=== PATIENT | female | born 1965 | race Caucasian/White ===

== ENCOUNTER → 2016-03-07 | Outpatient (CLI) | payer BC ==
[~2016-03-07] MED LIST: CALC-20 PO; CYAN3INJ INJ; EPP3/2 IM; LORA-741 PO; MEDR150I IM; PEDICHW18 PO; SERT-234 PO; VILA1TAB3 PO; VNTHFA/IN INH
--- NOTE | 2016-03-07 17:13 | DIAGNOSTIC IMAGING REPORT ---
CHEST 2 VIEWS ROUTINE CLINICAL HISTORY: Cough COMPARISON STUDY: 06/20/2013 FINDINGS: The cardiac and mediastinal contours are normal. There is no evidence of focal pulmonary consolidation. There is no evidence of failure. No pleural effusions are visualized.[ IMPRESSION: No active disease in the chest. Electronically signed by: Pollo Hernandez M.D. 03/07/2016 5:11 PM Dictated Date/Time: 03/07/2016 5:11 PM
== END | disposition home or self-care (01) ==
LOC: C.RAD 16:24
PROVIDERS: ATTEND Nurse Practitioner Family
DX: R05 Cough (principal)

== ENCOUNTER 2016-03-13 12:03 | Emergency (ER) | payer BC, OTHER ==
[~2016-03-13] VITALS: Ht 165.1 cm; Wt 94.4 kg
[~2016-03-13 12:03] MED LIST changes: -SERT-234 PO; -VNTHFA/IN INH
[2016-03-13 12:17] VITALS: Ht 165.1 cm; Wt 94.4 kg
[2016-03-13] MEDS ORDERED: SERT-234 PO (12:30)
[2016-03-13] MEDS ORDERED: VNTHFA/IN INH (12:30)
[2016-03-13] MEDS ORDERED: SODIUM CHLORIDE 0.9% 1000ML 1,000 ML IV STA (14:23)
[2016-03-13 14:42] LABS: BASO % 0.2 %; BASO ABS # 0.03 K/uL (0-0.2); COMPLETE YES; EOS % 0.9 %; HEMATOCRIT 39.3 % (37-47); IG% 0.3 %; LYMPH % 13.6 %; MEAN CELL VOLUME 78.1 fL (80-100); MEAN CORPUSCULAR HEMOGLOBIN 26.4 pg (25-34); MEAN CORPUSCULAR HGB CONC 33.8 g/dl (32-36); MEAN PLATELET VOLUME 10.1 fL (7.4-10.4); MONO % 11.9 %; NEUT % 73.1 %; PLATELET COUNT 402 K/uL (130-400); RED BLOOD COUNT 5.03 M/uL (4.2-5.4); WHITE BLOOD COUNT 13.25 K/uL (4.8-10.8)
[2016-03-13 14:45] VITALS: TEMP 36.9
[2016-03-13 14:52] LABS: ALT/SGPT 33 U/L (12-78); AST/SGOT 21 U/L (15-37); BLOOD UREA NITROGEN 9 mg/dl (7-18); BUN/CREATININE RATIO 12.7 (10-20); CALCIUM 8.5 mg/dl (8.5-10.1); CARBON DIOXIDE 23 mmol/L (21-32); CHLORIDE 109 mmol/L (98-107); CREATININE 0.73 mg/dl (0.60-1.20); GLUCOSE 73 mg/dl (70-99); POTASSIUM 3.7 mmol/L (3.5-5.1); SODIUM 141 mmol/L (136-145)
[2016-03-13 14:56] LABS: ALB/GLOB RATIO 0.9 (0.9-2); ALKALINE PHOSPHATASE 81 U/L (45-117)
--- NOTE | 2016-03-13 15:01 | EMERGENCY ROOM VISIT NOTE ---
History First contact with patient: 14:09 Chief Complaint: DEHYDRATION Stated Complaint: DEHYDRATION, PNEUMONIA Nursing Triage Summary: Triage note: Pt reports she was dx with influenza last week and given tamaflu. pt reports she had follow up appt today and was sent to ed for further eval. pt reports her heart rate was high and that she was told she was dehydrated. pt denies any nausea, vomitting, diarrhea. pt reports shortness of breath and coughing with clear blood tinged sputum. pt given mask to wear in triage. History of Present Illness The patient is a 50 year old female who presents to the Emergency Room via private vehicle coming by son with complaints of "dehydration, pneumonia". The patient states that this past Friday night into Friday she began with a cough and then developed fevers and chills. She states then she went to see her family doctor on the which is Dr. Gloria. She states that on she had a chest x-ray and flu swab which revealed she has influenza and with no pneumonia. She was placed on Tamiflu and Ventolin as well as Mucinex. Since that time she is not any better and finished the Tamiflu yesterday. Her follow-up as scheduled today with her doctor but they sent her in because she is tachycardic. There is associated cough, fevers as well as chills which she's been trying to alleviate with Motrin. The sputum has been yellow, green and slightly blood tinged. She has difficulty coughing up the mucus secondary to weakness. She states she feels very weak overall. She has been eating and drinking well. There is associated shortness of breath. She does have a history of a blood clot in her ankle in the past. She denies any chest pain, nausea, vomiting, abdominal pain, hemoptysis, pain. Review of Systems A complete 10-point Review of Systems was discussed with the patient, with pertinent positives and negatives listed in the History of Present Illness. All remaining Review of Systems questions can be considered negative unless otherwise specified. Past Medical/Surgical History Medical Problems: (1) Abdominal pain (2) Abdominal pain (3) Abdominal pain (4) Bariatric Surgery Status (5) PCOS (polycystic ovarian syndrome) (6) PCOS (polycystic ovarian syndrome) (7) Recurr Depr Disord-Mod Surgical Problems: (1) H/O gastric bypass (2) H/O gastric bypass (3) History of cholecystectomy (4) S/P T&A (status post tonsillectomy and adenoidectomy) (5) S/P T&A (status post tonsillectomy and adenoidectomy) Family History Cancer Diabetes mellitus Gallbladder disease Heart disease Hypertension Lung disease Social History Smoking Status: Never Smoker Alcohol Use: none Drug Use: none Marital Status: Housing Status: lives with family Occupation Status: employed Current/Historical Medications Scheduled Albuterol Hfa (Ventolin Hfa), 2-4 PUFFS INH Q6H Calcium Carbonate-Vitamin D (Calcium 600 + D), 1 TAB PO DAILY Cyanocobalamin (Vitamin B-12 Inj), 1 DOSE INJ MONTHLY Sertraline (Zoloft), 100 MG PO DAILY Allergies Coded Allergies: BEE STING (Verified Allergy, Unknown, unknown, 04/20/14) Physical Exam Vital Signs Date Time Temp Pulse Resp B/P Pulse Ox O2 Delivery O2 Flow Rate FiO2 03/13/16 19:27 87 18 125/75 98 Room Air 03/13/16 18:55 98 20 123/73 98 03/13/16 16:37 77 134/69 97 Room Air 03/13/16 14:45 36.9 80 20 130/86 97 Room Air 03/13/16 13:49 84 20 114/67 96 Room Air 03/13/16 12:17 36.8 115 20 123/86 96 Room Air Physical Exam VITAL SIGNS - Vital signs and nursing notes were reviewed. Patient is afebrile , normotensive, she is tachycardic at a rate of 115 bpm, she is saturating well on room air 96%. GENERAL -50-year-old female appearing her stated age who is in no acute distress. Communicates well with provider and answers questions appropriately. SKIN - Without rashes. No purpura. HEAD - NC/AT. EYES - PERRL with EOMI bilaterally. Sclera anicteric. Palpebral conjunctiva pink and moist with no injection noted. EARS - No deformities of external structures noted on gross examination bilaterally. No hemotympanum External auditory canals without discharge or otorrhea. Tympanic membranes pearly servin without retraction or bulging. No fluid or purulent material visualized behind the TM. Handle of malleus, umbo, cone of light, pars tensa/flaccid all easily visualized. NOSE - Midline and without cyanosis. No epistaxis or purulent drainage noted. Septum midline without deviation or septal hematoma noted. MOUTH/OROPHARYNX - Without perioral cyanosis. Buccal mucosa pink and moist and without leukoplakia. Tongue midline with equal elevation of palate bilaterally. No tonsillar hypertrophy, erythema, or exudates noted. Good dentition noted. NECK - Neck with FROM. Supple to palpation. Minimal lymphadenopathy noted. No nuchal rigidity. No C-spine tenderness. LUNGS - Chest wall symmetric without accessory muscle use, intercostals retractions, or central cyanosis. Normal vesicular breath sounds CTA B/L. No wheezes, rales, or rhonchi appreciated. The right lower lobe posteriorly does have slightly diminished breath sounds. CARDIAC - RRR with S1/S2. No murmur, rubs, or gallops appreciated. EXTREMITIES - No clubbing or peripheral cyanosis. No pretibial edema present. NEUROLOGIC - Cranial nerves II through XII grossly intact. Sensory intact to light touch throughout. PSYCH - A&Ox3 and cooperates fully with examiner. Pt is very pleasant and interacts well with examiner. Medical Decision & Procedures ER Provider Diagnostic Interpretation: CHEST 2 VIEWS ROUTINE CLINICAL HISTORY: Hx Influenza A, worsening of symptoms COMPARISON STUDY: Chest radiograph March 07, 2016 FINDINGS: Lung volumes are normal. Lungs are clear. There is no pneumothorax or pleural effusion. Cardiac size is normal. Mediastinal contours are normal. There is no evidence of pulmonary edema. IMPRESSION: No acute cardiopulmonary findings. Electronically signed by: Polo Alvarez M.D. 03/13/2016 3:02 PM Dictated Date/Time: 03/13/2016 3:[address] ANGIOGRAPHY OF THE CHEST, PULMONARY EMBOLUS PROTOCOL CLINICAL HISTORY: Dyspnea. COMPARISON STUDY: Chest radiograph March 07, 2016 and March 13, 2016. TECHNIQUE: Following IV administration of 101 mL of Optiray-320, helical axial images of the chest were obtained utilizing the pulmonary embolus protocol. Maximal intensity projections and sagittal and coronal reformats were viewed on an independent 3D workstation. IV contrast was administered without complication. CT DOSE: 539.20 mGycm FINDINGS: No pulmonary emboli are identified. The subsegmental vessels are suboptimally assessed due to respiratory motion. The size of the heart is normal. There is no evidence of thoracic aortic dissection. No enlarged axillary, mediastinal or hilar lymph nodes are present. No pneumothorax or pleural effusions present. The central airways are patent. There is no consolidation to suggest pneumonia. The bony thorax and upper abdomen are unremarkable. The patient is status post gastric bypass and cholecystectomy. There is a small hiatal hernia. IMPRESSION: 1. No pulmonary emboli identified although the subsegmental pulmonary arteries are suboptimally assessed due to motion artifact. 2. No acute intrathoracic findings. 3. Small hiatal hernia. 4. Status post gastric bypass and cholecystectomy. Electronically signed by: Polo Alvarez M.D. 03/13/2016 5:21 PM Dictated Date/Time: 03/13/2016 5:07 PM Laboratory Results 03/13/16 12:45 Red Blood Count 5.03, Mean Corpuscular Volume 78.1, Mean Corpuscular Hemoglobin 26.4, Mean Corpuscular Hemoglobin Concent 33.8, Mean Platelet Volume 10.1, Neutrophils (%) (Auto) 73.1, Lymphocytes (%) (Auto) 13.6, Monocytes (%) (Auto) 11.9, Eosinophils (%) (Auto) 0.9, Basophils (%) (Auto) 0.2, Neutrophils # (Auto ) 9.68, Lymphocytes # (Auto) 1.80, Monocytes # (Auto) 1.58, Eosinophils # (Auto ) 0.12, Basophils # (Auto) 0.03 03/13/16 12:45 Test 03/13/16 12:45 03/13/16 19:00 White Blood Count 13.25 K/uL (4.8-10.8) Red Blood Count 5.03 M/uL (4.2-5.4) Hemoglobin 13.3 g/dL (12.0-16.0) Hematocrit 39.3 % (37-47) Mean Corpuscular Volume 78.1 fL (80-100) Mean Corpuscular Hemoglobin 26.4 pg (25-34) Mean Corpuscular Hemoglobin Concent 33.8 g/dl (32-36) Platelet Count 402 K/uL (130-400) Mean Platelet Volume 10.1 fL (7.4-10.4) Neutrophils (%) (Auto) 73.1 % Lymphocytes (%) (Auto) 13.6 % Monocytes (%) (Auto) 11.9 % Eosinophils (%) (Auto) 0.9 % Basophils (%) (Auto) 0.2 % Neutrophils # (Auto) 9.68 K/uL (1.4-6.5) Lymphocytes # (Auto) 1.80 K/uL (1.2-3.4) Monocytes # (Auto) 1.58 K/uL (0.11-0.59) Eosinophils # (Auto) 0.12 K/uL (0-0.5) Basophils # (Auto) 0.03 K/uL (0-0.2) RDW Standard Deviation 43.9 fL (36.4-46.3) RDW Coefficient of Variation 15.5 % (11.5-14.5) Immature Granulocyte % (Auto) 0.3 % Immature Granulocyte # (Auto) 0.04 K/uL (0.00-0.02) D-Dimer 480 ug/L FEU (0-500) Anion Gap 9.0 mmol/L (3-11) Est Creatinine Clear Calc Drug Dose 107.1 ml/min Estimated GFR () 112.9 Estimated GFR (Non- 97.4 BUN/Creatinine Ratio 12.7 (10-20) Calcium Level 8.5 mg/dl (8.5-10.1) Total Bilirubin 0.3 mg/dl (0.2-1) Aspartate Amino Transf (AST/SGOT) 21 U/L (15-37) Alanine Aminotransferase (ALT/SGPT) 33 U/L (12-78) Alkaline Phosphatase 81 U/L (45-117) Troponin I < 0.015 ng/ml (0-0.045) Total Protein 7.7 gm/dl (6.4-8.2) Albumin 3.6 gm/dl (3.4-5.0) Globulin 4.1 gm/dl (2.5-4.0) Albumin/Globulin Ratio 0.9 (0.9-2) Urine Color YELLOW Urine Appearance CLEAR (CLEAR) Urine pH 6.0 (4.5-7.5) Urine Specific Emmons > 1.045 (1.000-1.030) Urine Protein NEG (NEG) Urine Glucose (UA) NEG (NEG) Urine Ketones NEG (NEG) Urine Occult Blood NEG (NEG) Urine Nitrite NEG (NEG) Urine Bilirubin NEG (NEG) Urine Urobilinogen NEG (NEG) Urine Leukocyte Esterase NEG (NEG) Medications Administered Medications (Trade) Dose Ordered Sig/Fred Route Start Time Stop Time Status Last Admin Dose Admin Sodium Chloride (Nss 1000ml) 1,000 ml @ 999 mls/hr Q1H1M STAT IV 03/13/16 14:23 03/13/16 15:23 DC 03/13/16 12:30 999 MLS/HR Acetaminophen (Tylenol Tab) 650 mg NOW STAT PO 03/13/16 16:39 03/13/16 16:42 DC 03/13/16 17:29 650 MG Albuterol/ Ipratropium (Duoneb) 3 ml NOW STAT INH 03/13/16 18:30 03/13/16 18:32 DC 03/13/16 19:01 3 ML Medical Decision Patient was seen and evaluated as above. After obtaining a thorough history and physical examination IV access was obtained and a CBC, CMP, d-dimer, chest two-view routine, stat EKG, troponin, liter of normal saline secondary to subjective and objective examination findings. The patient does have a diagnosis of influenza of which was made by her family doctor earlier in the week. She is here referred from the family doctor because she was tachycardic upon her recheck. CBC revealed a slightly leukocytosis of 13.25. D-dimer was 480. Chloride was slightly high at 109 no other less slight abnormality. No evidence of kidney or liver failure. Troponin was negative. Globulin was slightly high at 4.1. Urine showed a slightly high urine specific gravity. The chest x-ray \\was unremarkable for any acute process. I was concerned about pneumonia therefore this was able to help rule out. I discussed the case with my attending and because the patient did feel short of breath, and her d-dimer was not positive but nearly positive a CTA of the chest was obtained. This was after verifying consent with the patient. Results as above. I agree with the radiologists findings. The patient does not appear to have any acute finding up on lab work or imaging. Clinically she does look to be mildly ill but does not appear to be toxic in appearance. I believe she is still experiencing symptoms of the flu. She was hydrated here and after speaking with her initially she noted that she wanted to be admitted but then after reassessing in talking with her it was decided that she would try and go home and rest and see how she was feeling and that if she persistently was not feeling better or if she worsens she was to return medially. She verbalized understanding. I think this is reasonable. She was educated upon follow-up as well as worrisome symptoms in which to return. She had questions answered prior to discharge and was discharged home in good condition. During her stay she was given Tylenol and a DuoNeb treatment with minimal relief. The patient is not hypoxic. EKG reveals normal sinus rhythm rate of 60 bpm, no ectopy or ischemic changes noted. In evaluation treatment this patient the following differential diagnoses were entertained: Pneumonia, pulmonary embolism, sepsis, post influenza syndrome, among others. Impression Primary Impression: Post-influenza syndrome Departure Information Dispostion Home / Self-Care Condition GOOD Referrals Shawanda Noriega MD (PCP) Patient Instructions A Signature Page, [facility] Additional Instructions You were seen in the emergency department for influenza. Workup has ruled out any emergent heart causes, lung causes or infectious causes. Please follow-up with your family doctor regarding today's visit. As we discussed her condition may change once you leave here and if you develop any worrisome or concerning symptoms please return immediately. Please drink plenty of fluids and eat a well-balanced diet. Please return to emergency department with any new/concerning symptoms.
--- NOTE | 2016-03-13 15:04 | DIAGNOSTIC IMAGING REPORT ---
CHEST 2 VIEWS ROUTINE CLINICAL HISTORY: Hx Influenza A, worsening of symptoms COMPARISON STUDY: Chest radiograph March 07, 2016 FINDINGS: Lung volumes are normal. Lungs are clear. There is no pneumothorax or pleural effusion. Cardiac size is normal. Mediastinal contours are normal. There is no evidence of pulmonary edema. IMPRESSION: No acute cardiopulmonary findings. Electronically signed by: Polo Alvarez M.D. 03/13/2016 3:02 PM Dictated Date/Time: 03/13/2016 3:02 PM
[2016-03-13] MEDS ORDERED: ACETAMINOPHEN 325 MG TAB PO STA (16:39)
[2016-03-13] MEDS ORDERED: OPTIRAY 320 IV PRN (16:45)
--- NOTE | 2016-03-13 17:22 | DIAGNOSTIC IMAGING REPORT ---
CT ANGIOGRAPHY OF THE CHEST, PULMONARY EMBOLUS PROTOCOL CLINICAL HISTORY: Dyspnea. COMPARISON STUDY: Chest radiograph March 07, 2016 and March 13, 2016. TECHNIQUE: Following IV administration of 101 mL of Optiray-320, helical axial images of the chest were obtained utilizing the pulmonary embolus protocol. Maximal intensity projections and sagittal and coronal reformats were viewed on an independent 3D workstation. IV contrast was administered without complication. CT DOSE: 539.20 mGycm FINDINGS: No pulmonary emboli are identified. The subsegmental vessels are suboptimally assessed due to respiratory motion. The size of the heart is normal. There is no evidence of thoracic aortic dissection. No enlarged axillary, mediastinal or hilar lymph nodes are present. No pneumothorax or pleural effusions present. The central airways are patent. There is no consolidation to suggest pneumonia. The bony thorax and upper abdomen are unremarkable. The patient is status post gastric bypass and cholecystectomy. There is a small hiatal hernia. IMPRESSION: 1. No pulmonary emboli identified although the subsegmental pulmonary arteries are suboptimally assessed due to motion artifact. 2. No acute intrathoracic findings. 3. Small hiatal hernia. 4. Status post gastric bypass and cholecystectomy. Electronically signed by: Polo Alvarez M.D. 03/13/2016 5:21 PM Dictated Date/Time: 03/13/2016 5:07 PM
[2016-03-13] MEDS ORDERED: ALBUT/IPRATROP 3MG/0.5MG NEB 3 ML VIAL INH STA (18:30)
[2016-03-13 19:19] LABS: URINE APPEARANCE CLEAR (CLEAR); URINE BILIRUBIN NEG (NEG); URINE COLOR YELLOW; URINE NITRITE NEG (NEG); URINE SPECIFIC GRAVITY > 1.045 (1.000-1.030); UROBILINOGEN NEG (NEG); ZZUR CULT IF INDIC CLEAN CATCH NO
[2016-03-13 19:27] VITALS: BP 125/75; PULSE 87; O2SAT 98
[2016-03-13 19:28] LABS: MANUAL MICROSCOPIC REQUIRED? NO; REVIEW REQ? NO
== END 2016-03-13 20:15 | disposition home or self-care (01) ==
LOC: C.EDB 12:05 → C.EDC 20:15
DX: R00.0 Tachycardia, unspecified (principal); Z98.84 Bariatric surgery status; J11.1 Influenza due to unidentified influenza virus with other respiratory manifestations; Z83.3 Family history of diabetes mellitus; Z82.49 Family history of ischemic heart disease and other diseases of the circulatory system; Z79.899 Other long term (current) drug therapy

== ENCOUNTER → 2016-03-25 | Outpatient (CLI) | payer BC ==
[~2016-03-25] MED LIST changes: -EPP3/2 IM; -LORA-741 PO; -MEDR150I IM; -PEDICHW18 PO; +SERT-234 PO; -VILA1TAB3 PO; +VNTHFA/IN INH
[2016-03-25 17:28] LABS: BASO % 0.4 %; BASO ABS # 0.04 K/uL (0-0.2); COMPLETE YES; EOS % 1.3 %; HEMATOCRIT 36.4 % (37-47); IG% 0.2 %; LYMPH % 28.9 %; LYMPH ABS # 2.57 K/uL (1.2-3.4); MEAN CELL VOLUME 79.6 fL (80-100); MEAN CORPUSCULAR HGB CONC 32.7 g/dl (32-36); MEAN PLATELET VOLUME 10.3 fL (7.4-10.4); MONO % 10.7 %; NEUT % 58.5 %; PLATELET COUNT 444 K/uL (130-400); RED BLOOD COUNT 4.57 M/uL (4.2-5.4)
[2016-03-25 17:46] LABS: ALT/SGPT 23 U/L (12-78); BLOOD UREA NITROGEN 7 mg/dl (7-18); BUN/CREATININE RATIO 9.7 (10-20); CALCIUM 8.7 mg/dl (8.5-10.1); CARBON DIOXIDE 22 mmol/L (21-32); CHLORIDE 108 mmol/L (98-107); CREATININE 0.72 mg/dl (0.60-1.20); GLUCOSE 80 mg/dl (70-99); POTASSIUM 3.9 mmol/L (3.5-5.1); SODIUM 141 mmol/L (136-145)
[2016-03-25 17:49] LABS: ANTI-STREP O SCR: 5YRS OR > NEG IU/ml (<200 IU)
[2016-03-25 17:57] LABS: ALB/GLOB RATIO 1.1 (0.9-2); ALKALINE PHOSPHATASE 71 U/L (45-117); AST/SGOT 17 U/L (15-37)
[2016-03-25 20:23] LABS: LYME DISEASE AB IGG NEG (NEG); LYME DISEASE AB IGM POS (NEG)
[2016-03-27 12:02] LABS: EPSTEIN BARR VIR CAPSID IGG 2.69 INDEX
[2016-03-27 15:59] LABS: 18KDIGG BAND NONREACTIVE (NONREACTIVE); 23KDIGG BAND NONREACTIVE (NONREACTIVE); 23KDIGM BAND REACTIVE (NONREACTIVE); 28KDIGG BAND NONREACTIVE (NONREACTIVE); 30KDIGG BAND NONREACTIVE (NONREACTIVE); 39KDIGG BAND NONREACTIVE (NONREACTIVE); 39KDIGM BAND NONREACTIVE (NONREACTIVE); 41KDIGG BAND REACTIVE (NONREACTIVE); 41KDIGM BAND NONREACTIVE (NONREACTIVE); 45KDIGG BAND NONREACTIVE (NONREACTIVE); 58KDIGG BAND NONREACTIVE (NONREACTIVE); 66KDIGG BAND NONREACTIVE (NONREACTIVE); 93KDIGG BAND NONREACTIVE (NONREACTIVE)
== END | disposition home or self-care (01) ==
LOC: C.LABPBG 13:59
PROVIDERS: ATTEND Nurse Practitioner Family
DX: M79.1 Myalgia (principal); R53.83 Other fatigue

== ENCOUNTER → 2017-04-14 | Outpatient (CLI) | payer BC | END | disposition home or self-care (01) | LOC: C.LABSPEC 18:12 | PROVIDERS: ATTEND Neuromusculoskeletal Medicine & OMM | DX: R53.83 Other fatigue (principal); M79.1 Myalgia; E53.8 Deficiency of other specified B group vitamins; J02.9 Acute pharyngitis, unspecified ==

== ENCOUNTER → 2017-04-14 | Outpatient (CLI) | payer BC ==
[2017-04-14 14:42] LABS: BASO % 0.6 %; BASO ABS # 0.07 K/uL (0-0.2); EOS % 1.1 %; EOS ABS # 0.13 K/uL (0-0.5); HEMATOCRIT 37.6 % (37-47); HEMOGLOBIN 12.1 g/dL (12.0-16.0); IG# 0.03 K/uL (0.00-0.02); LYMPH % 19.9 %; LYMPH ABS # 2.32 K/uL (1.2-3.4); MEAN CELL VOLUME 72.9 fL (80-100); MEAN CORPUSCULAR HEMOGLOBIN 23.4 pg (25-34); MEAN CORPUSCULAR HGB CONC 32.2 g/dl (32-36); MEAN PLATELET VOLUME 9.7 fL (7.4-10.4); MONO % 7.1 %; MONO ABS # 0.83 K/uL (0.11-0.59); NEUT ABS # 8.28 K/uL (1.4-6.5); PLATELET COUNT 438 K/uL (130-400); RED CELL DISTRIBUTION WIDTH CV 16.7 % (11.5-14.5); WHITE BLOOD COUNT 11.66 K/uL (4.8-10.8)
[2017-04-14 15:04] LABS: ALBUMIN 3.6 gm/dl (3.4-5.0); ALT/SGPT 23 U/L (12-78); BLOOD UREA NITROGEN 9 mg/dl (7-18); CALCIUM 8.7 mg/dl (8.5-10.1); CARBON DIOXIDE 28 mmol/L (21-32); CHOLESTEROL 152 mg/dl (0-200); CREATININE 0.69 mg/dl (0.60-1.20); GLUCOSE 91 mg/dl (70-99); POTASSIUM 4.3 mmol/L (3.5-5.1); SODIUM 136 mmol/L (136-145)
[2017-04-14 15:14] LABS: ALKALINE PHOSPHATASE 80 U/L (45-117); AST/SGOT 15 U/L (15-37); LDL CHOLESTEROL CALCULATED 85 mg/dl; TOTAL PROTEIN 7.6 gm/dl (6.4-8.2)
== END | disposition home or self-care (01) ==
LOC: C.LAB 12:53
PROVIDERS: ATTEND Neuromusculoskeletal Medicine & OMM
DX: E53.8 Deficiency of other specified B group vitamins (principal); J02.9 Acute pharyngitis, unspecified; R53.83 Other fatigue; E66.9 Obesity, unspecified; M79.1 Myalgia